=== PATIENT | male | born 1985 | race Caucasian/White ===

== ENCOUNTER 2018-03-19 05:10 | Emergency (ER) | payer BC ==
[2018-03-19] MEDS ORDERED: NA CHLORIDE 0.9% 1,000 ML ONE (05:34)
[2018-03-19 05:59] LABS: BUN Blood Urea Nitrogen 14 mg/dL (7-18); Bicarbonate 26 mmol/L (21-32); Creatine Phosphokinase 112 U/L (39-308); Glucose Level 165 mg/dL (74-106); Potassium 3.3 mmol/L (3.5-5.1); Sodium Level 143 mmol/L (136-145); Troponin (Emerg Dept Use Only) < 0.02 ng/mL (0.0-0.045)
--- NOTE | 2018-03-19 06:46 | EDPHYS ---
Physician Documentation [facility] Name: Diogo Mejia Age: 32 yrs Sex: Male : 1985 Arrival Date: 03/19/2018 Time: 05:13 Bed 16 Private MD: ED Physician Karl Rose HPI: 03/19 05:25 This 32 yrs old Male presents to ER via EMS with complaints of weakness, rn chills, . 05:25 REports called 911 for allergic reaction, but states only because that is what other rn doctors have told him this is. Reports since 2003 having several episodes, sometimes weekly that he describes as sudden generalized weakness/fatigue/chills/shakes/rash that last as long as an hour, goes away on their own, been seen multiple times in past and no clear diagnosis. Reports told to take benadryl in past but doesn't believe is true allergic reaction. Began happening again tonight, reports this is "a light episode", has only had the weakness and shakes. NO seizure. Denies drug or ETOH use. No trauma. Reports is very thirsty. . Onset: The symptoms/episode began/occurred just prior to arrival. Severity of symptoms: At their worst the symptoms were mild in the emergency department the symptoms are unchanged. The patient has experienced similar episodes in the past. The patient has not recently seen a physician. Historical: - Allergies: 05:19 NKA; ak1 - Home Meds: 05:19 None [Active]; ak1 - PMHx: 05:19 None; ak1 - PSHx: 05:19 shoulder sx; wrist; ak1 - Immunization history:: Adult Immunizations unknown. - Social history:: Smoking status: unknown. - Ebola Screening: : No symptoms or risks identified at this time. - Family history:: not pertinent. - Hospitalizations: : No recent hospitalization is reported. ROS: 05:25 Constitutional: Negative for fever, weight loss, Eyes: Negative for injury, pain, rn redness, and discharge, ENT: Negative for injury, pain, and discharge, Neck: Negative for injury, pain, and swelling, Cardiovascular: Negative for chest pain, palpitations, and edema, Respiratory: Negative for shortness of breath, cough, wheezing, and pleuritic chest pain, Abdomen/GI: Negative for abdominal pain, nausea, vomiting, and constipation, : Negative for injury, bleeding, discharge, and swelling, MS/Extremity: Negative for injury and deformity, Skin: Negative for injury, rash, and discoloration, Neuro: Negative for headache, numbness, tingling, and seizure. Exam: 05:25 Constitutional: This is a well developed, well nourished patient who is awake, alert, rn appears anxious, is frustrated that multiple people asking questions. Head/Face: Normocephalic, atraumatic. Eyes: Pupils equal round and reactive to light, extra-ocular motions intact. Lids and lashes normal. Conjunctiva and sclera are non-icteric and not injected. Cornea within normal limits. Periorbital areas with no swelling, redness, or edema. ENT: dry MM, no stridor, no oral lacerations or trauma Cardiovascular: Regular rate and rhythm with a normal S1 and S2. No gallops, murmurs, or rubs. No pulse deficits Respiratory: Lungs have equal breath sounds bilaterally, clear to auscultation. No increased work of breathing, no retractions or nasal flaring. Abdomen/GI: soft, non-tender Skin: Warm, dry, no evidence of cellulitis. MS/ Extremity: Pulses equal, no cyanosis. Neurovascular intact. Full, normal range of motion. Equal circumference. Neuro: Awake and alert, GCS 15, oriented to person, place, time, and situation. Cranial nerves II-XII grossly intact. Motor strength 4/5 in all extremities. Sensory grossly intact. Cerebellar exam normal. Vital Signs: 05:19 BP 141 / 79; Pulse 58; Resp 18; Temp 98.1(O); Pulse Ox 96% on R/A; Weight 95.25 kg (R); ak1 Height 5 ft. 7 in. (170.18 cm) (R); Pain 0/10; 06:00 BP 124 / 82; Pulse 77; Resp 18; Pulse Ox 96% on R/A; jb4 07:00 BP 131 / 73; Pulse 86; Resp 18; Pulse Ox 100% on R/A; jb4 05:19 Body Mass Index 32.89 (95.25 kg, 170.18 cm) ak1 MDM: 05:19 Patient medically screened. rn 06:41 Differential Diagnosis flu, dehydration, metabolic disorder, autoimmune disorder, rn rheumatologic disorder. Data reviewed: vital signs, nurses notes, lab test result(s), EKG, and as a result, I will discharge patient. Counseling: I had a detailed discussion with the patient and/or guardian regarding: the historical points, exam findings, and any diagnostic results supporting the discharge/admit diagnosis, lab results, the need for outpatient follow up, to return to the emergency department if symptoms worsen or persist or if there are any questions or concerns that arise at home. Response to treatment: the patient's symptoms have markedly improved after treatment, and as a result, I will discharge patient. Special discussion: I discussed with the patient/guardian in detail that at this point there is no indication for admission to the hospital. It is understood, however, that if the symptoms persist or worsen the patient needs to return immediately for re-evaluation. Based on the history and exam findings, there is no indication for further emergent testing or inpatient evaluation. I discussed with the patient/guardian the need to see the primary care provider for further evaluation of the symptoms. ED course: Pt reports multiple negative w/u such as that done today, has had multiple CT scans, MRIs, bloodwork at [place] and other doctors without diagnosis, reports usually just goes away on its own, no acute findings today, will dc home with instructions for hydration/daily multivitamin, and recommend pcp f/u. No seizure activity, normal ecg, mother here to take him home, she confirms that this has been going on for years without diagnosis or treatment, wants to take him home and understands limitation of ER evaluations and further need for f/u. . 03/19 05:23 Order name: BMP; Complete Time: : rn 03/19 05:23 Order name: Troponin (emerg Dept Use Only); Complete Time: : rn 03/19 05:23 Order name: CK; Complete Time: : rn 03/19 05:23 Order name: ETOH Level; Complete Time: : rn 03/19 05:23 Order name: Magnesium; Complete Time: 06: rn 03/19 05:20 Order name: IV Start; Complete Time: 05:35 rn 03/19 05:23 Order name: EKG; Complete Time: 05:24 rn 03/19 05:23 Order name: EKG - Nurse/Tech; Complete Time: 06:17 rn 10/21 05:24 Order name: Flu rn Administered Medications: 06:17 Drug: NS 0.9% 1000 ml Route: IV; Rate: 1000 ml; Site: left antecubital; 4 07:00 Follow up: Response: No adverse reaction; IV Status: Completed infusion [facility] 06:57 CANCELLED (Other Intervention Used): Potassium Chloride 10 mEq IV at calculated rate bb once; administer over 1-2 hours 07:00 Drug: Potassium Chloride 40 mEq Route: PO; jb4 07:00 Follow up: Response: No adverse reaction jb4 Disposition: 03/19/18 06:45 Discharged to Home. Impression: Chills (without fever), Weakness, Hypokalemia. - Condition is Stable. - Discharge Instructions: Potassium Content of Foods, Weakness, Fatigue, Hypokalemia. - Medication Reconciliation Form, Thank You Letter, Antibiotic Education, Prescription Opioid Use form. - Follow up: Private Physician; When: As needed; Reason: Recheck today's complaints, Re-evaluation by your physician. - Problem is new. - Symptoms have improved. Signatures: Dispatcher [employer] EDMS Karl Rose MD MD rn Krenek, Amber RN RN ak1 Antwon Braun RN RN jb4 Kristal Huitron RN bb Corrections: (The following items were deleted from the chart) 06:57 06:29 Potassium Chloride 10 mEq IV at calculated rate once; administer over 1-2 hours bb ordered. rn 07:13 06:45 03/19/2018 06:45 Discharged to Home. Impression: Chills (without fever); jb4 Weakness; Hypokalemia. Condition is Stable. Forms are Medication Reconciliation Form, Thank You Letter, Antibiotic Education, Prescription Opioid Use. Follow up: Private Physician; When: As needed; Reason: Recheck today's complaints, Re-evaluation by your physician. Problem is new. Symptoms have improved. rn
--- NOTE | 2018-03-19 06:46 | ER ---
Nurse's Notes [facility] Name: Diogo Mejia Age: 32 yrs Sex: Male : 1985 Arrival Date: 03/19/2018 Time: 05:13 Bed 16 Private MD: Diagnosis: Chills (without fever);Weakness;Hypokalemia Presentation: 03/19 05:14 Presenting complaint: EMS states: toned out for allergic reaction. ETOH positive but ak1 denies. pt c/o weakness, diarrhea, slurred words, chills and hives during his "episodes" pt stated these allergic reaction [place]. Transition of care: patient was not received from another setting of care. Onset of symptoms is unknown. Risk Assessment: Do you want to hurt yourself or someone else? Patient reports no desire to harm self or others. Initial Sepsis Screen: Does the patient meet any 2 criteria? No. Patient's initial sepsis screen is negative. Does the patient have a suspected source of infection? No. Patient's initial sepsis screen is negative. Care prior to arrival: None. 05:14 Method Of Arrival: EMS: [facility] ak1 05:14 Acuity: ABHINAV 3 ak1 05:24 Note EMS FSGB 154. ak1 Triage Assessment: 05:19 General: Appears in no apparent distress. ak1 Historical: - Allergies: 05:19 NKA; ak1 - Home Meds: 05:19 None [Active]; ak1 - PMHx: 05:19 None; ak1 - PSHx: 05:19 shoulder sx; wrist; ak1 - Immunization history:: Adult Immunizations unknown. - Social history:: Smoking status: unknown. - Ebola Screening: : No symptoms or risks identified at this time. - Family history:: not pertinent. - Hospitalizations: : No recent hospitalization is reported. Screenin:15 Abuse screen: Denies threats or abuse. Nutritional screening: No deficits noted. jb4 Tuberculosis screening: No symptoms or risk factors identified. Fall Risk None identified. Assessment: 05:15 General: Appears in no apparent distress. uncomfortable, Behavior is calm, cooperative, jb4 appropriate for age. Pain: Denies pain. Neuro: Level of Consciousness is awake, alert, obeys commands, Oriented to person, place, time, situation. Cardiovascular: Heart tones S1 S2 Patient's skin is warm and dry. Respiratory: Airway is patent Respiratory effort is even, unlabored, Respiratory pattern is regular, symmetrical, Breath sounds are clear bilaterally. GI: Abdomen is round non-distended, Bowel sounds present X 4 quads. Abd is soft and non tender X 4 quads. : No signs and/or symptoms were reported regarding the genitourinary system. EENT: Sclera/Cornea are reddened in inner aspect of conjuctiva of right eye and inner aspect of conjunctiva of left eye. Derm: Skin is intact, Skin is pink, warm \\T\\ dry. Musculoskeletal: Circulation, motion, and sensation intact. 06:10 Reassessment: Patient appears in no apparent distress at this time. Patient and/or jb4 family updated on plan of care and expected duration. Pain level reassessed. Patient is alert, oriented x 3, equal unlabored respirations, skin warm/dry/pink. 07:10 Reassessment: Patient appears in no apparent distress at this time. Patient and/or jb4 family updated on plan of care and expected duration. Pain level reassessed. Patient is alert, oriented x 3, equal unlabored respirations, skin warm/dry/pink. Vital Signs: 05:19 BP 141 / 79; Pulse 58; Resp 18; Temp 98.1(O); Pulse Ox 96% on R/A; Weight 95.25 kg (R); ak1 Height 5 ft. 7 in. (170.18 cm) (R); Pain 0/10; 06:00 BP 124 / 82; Pulse 77; Resp 18; Pulse Ox 96% on R/A; jb4 07:00 BP 131 / 73; Pulse 86; Resp 18; Pulse Ox 100% on R/A; jb4 05:19 Body Mass Index 32.89 (95.25 kg, 170.18 cm) ak1 ED Course: 05:13 Patient arrived in ED. ak1 05:14 Antwon Braun, EUGENE is Primary Nurse. jb4 05:15 Patient has correct armband on for positive identification. Call light in reach. Side jb4 rails up X 1. Pulse ox on. NIBP on. 05:15 Inserted saline lock: 20 gauge in left antecubital area, using aseptic technique. Blood bb collected. 05:17 Triage completed. ak1 05:19 Karl Rose MD is Attending Physician. rn 05:19 Arm band placed on Patient placed in an exam room, on a stretcher, on pulse oximetry, ak1 Patient notified of wait time. 07:00 No provider procedures requiring assistance completed. IV discontinued, intact, jb4 bleeding controlled. Administered Medications: 06:17 Drug: NS 0.9% 1000 ml Route: IV; Rate: 1000 ml; Site: left antecubital; jb4 07:00 Follow up: Response: No adverse reaction; IV Status: Completed infusion jb4 06:57 CANCELLED (Other Intervention Used): Potassium Chloride 10 mEq IV at calculated rate bb once; administer over 1-2 hours 07:00 Drug: Potassium Chloride 40 mEq Route: PO; jb4 07:00 Follow up: Response: No adverse reaction jb4 Outcome: 06:45 Discharge ordered by . rn 07:00 Discharged to home ambulatory. jb4 07:00 Condition: stable 07:00 Discharge instructions given to patient, Instructed on discharge instructions, follow up and referral plans. medication usage, Demonstrated understanding of instructions, follow-up care, medications. 07:13 Patient left the ED. jb4 Signatures: Kristal Huitron, RN RN bb Karl Rose MD MD rn Krenek, Amber, RN RN ak1 Antwon Braun RN RN jb4
[2018-03-19] MEDS ORDERED: POTASSIUM CL SA 10 MEQ TAB PO ONE (07:04)
[2018-03-19 07:18] VITALS: TEMP 98.1
[2018-03-19 07:20] VITALS: BP 131/73; O2SAT 100
--- NOTE | 2018-03-20 09:05 | EKG ---
Test Date: 2018-03-19 Test Time: 06:11:18 Security Expert: ELVIA MEASUREMENT RESULTS: Intervals: Rate: 72 VT: 148 QRSD: 90 QT: 388 QTc: 424 [place]: P: 7 VT: 148 QRS: 79 T: 51 INTERPRETIVE STATEMENTS: Normal sinus rhythm with sinus arrhythmia Normal ECG Compared to ECG 01/14/2015 20:55:15 No significant changes Electronically Signed On 03-20-18 09:04:34 CDT by Lee Arreguin
== END 2018-03-19 07:13 | disposition home or self-care (01) ==
LOC: ER 05:10
DX: E87.6 Hypokalemia (principal); R68.83 Chills (without fever)
CPT/HCPCS: 36415; 80048; 80320; 82550; 83735; 84484; 87804; 93005; 96360; 99284; J7030

== ENCOUNTER 2018-05-20 22:04 | Observation (INO) | payer BC ==
[2018-05-20 23:27] LABS: Arterial Blood Carboxyhemoglob 1.1 % (0-1.5); Blood Gas Oxyhemoglobin 96.8 % (94-97); Blood O2 Saturation 98.9 % (92-98.5)
[2018-05-20] MEDS ORDERED: NA CHLORIDE 0.9% 1,000 ML ONE (23:31)
--- NOTE | 2018-05-21 00:24 | ER ---
Nurse's Notes [facility] Name: Diogo Mejia Age: 32 yrs Sex: Male : 1985 Arrival Date: 05/20/2018 Time: 22:37 Bed 18 Private MD: Diagnosis: Dyspnea;Hypoxemia;Abdominal tenderness;Diarrhea, unspecified;Elevated white blood cell count;Pneumonia due to other specified bacteria Presentation: 05/20 22:15 Presenting complaint: EMS states: unable to control his bowel movement started since rr5 2005 after he went back from [place] as claimed. associated with reddened eyes, flushed skin and body weakness. Transition of care: patient was not received from another setting of care. Onset of symptoms was 2005. Risk Assessment: Do you want to hurt yourself or someone else? Patient reports no desire to harm self or others. Initial Sepsis Screen: Does the patient meet any 2 criteria? No. Patient's initial sepsis screen is negative. Does the patient have a suspected source of infection? No. Patient's initial sepsis screen is negative. Care prior to arrival: None. 22:15 Method Of Arrival: EMS rr5 22:15 Acuity: ABHINAV 3 rr5 22:15 Method Of Arrival: EMS: [facility] rr5 22:15 Note came GCS 15/15 AO x4 full of stool all over the upper and lower extremities. rr5 Triage Assessment: 22:15 General: Appears in no apparent distress. uncomfortable, unkempt, Behavior is calm, rr5 cooperative, appropriate for age. Pain: Denies pain. 22:15 EENT: Eyes reddened eyes. Neuro: Level of Consciousness is awake, alert, obeys rr5 commands, Oriented to person, place, time, situation, Appropriate for age. Cardiovascular: Capillary refill < 3 seconds Patient's skin is warm and dry. Respiratory: Airway is patent Respiratory effort is even, unlabored, Respiratory pattern is regular, symmetrical. GI: Reports incontinence. 22:15 : No signs and/or symptoms were reported regarding the genitourinary system. Derm: No rr5 signs and/or symptoms reported regarding the dermatologic system. Musculoskeletal: Reports weakness all over the body. Historical: - Allergies: 22:15 NKA; rr5 - PMHx: 22:15 None; rr5 - PSHx: 22:15 wrist surgery; shoulder surgery; rr5 - Immunization history:: Adult Immunizations not up to date, Flu vaccine is not up to date. - Social history:: Smoking status: Patient/guardian denies using tobacco, Patient/guardian denies using alcohol, street drugs. - Ebola Screening: : Patient negative for fever greater than or equal to 101.5 degrees Fahrenheit, and additional compatible Ebola Virus Disease symptoms Patient denies exposure to infectious person Patient denies travel to an Ebola-affected area in the 21 days before illness onset. - Family history:: not pertinent. Screenin:50 Abuse screen: Denies threats or abuse. Denies injuries from another. Nutritional rr5 screening: No deficits noted. Tuberculosis screening: No symptoms or risk factors identified. Fall Risk IV access (20 points). Gait- Weak (10 pts.). Total Ruelas Fall Scale indicates Low Risk Score (25-44 pts). Fall prevention measures have been instituted. Side Rails Up X 2 Frequent Obs/Assesments occuring Family Present and informed to notify staff if they need to leave bedside As available Patient and Family Educated on Fall Prevention Program and strategies. Assessment: 22:20 General: Appears in no apparent distress. uncomfortable, unkempt, Behavior is calm, rr5 cooperative, appropriate for age. 22:20 Pain: Denies pain. Neuro: Level of Consciousness is awake, alert, obeys commands, rr5 Oriented to person, place, time, situation, Appropriate for age Reports weakness. Cardiovascular: Capillary refill < 3 seconds Patient's skin is warm and dry. Respiratory: Airway is patent Respiratory effort is even, unlabored, Respiratory pattern is regular, symmetrical. GI: Abdomen is round. : No signs and/or symptoms were reported regarding the genitourinary system. EENT: Eyes reddened. Derm: pale on face. Musculoskeletal: Capillary refill < 3 seconds, Range of motion: intact in all extremities, Reports weakness in all over the body. 22:20 GI: Reports diarrhea. rr5 23:30 Reassessment: Patient appears in no apparent distress at this time. no complaints made. rr5 asleep comfortably Patient states feeling better. Patient states symptoms have improved. 05/21 00:20 Reassessment: Patient appears in no apparent distress at this time. Patient and/or rr5 family updated on plan of care and expected duration. Pain level reassessed. Patient is alert, oriented x 3, equal unlabored respirations, skin warm/dry/pink. Patient states feeling better. Patient states symptoms have improved. 01:30 Reassessment: Patient appears in no apparent distress at this time. awaiting for CT rr5 scan report, patient is for admission. Patient states feeling better. Patient states symptoms have improved. 02:30 Reassessment: Patient appears in no apparent distress at this time. Patient and/or rr5 family updated on plan of care and expected duration. Pain level reassessed. Patient states feeling better. Patient states symptoms have improved. 03:20 Reassessment: Patient appears in no apparent distress at this time. dr. cormier spoke rr5 to patient and agreed to stay for admission. Vital Signs: 05/20 22:15 BP 114 / 72; Pulse 88; Resp 17; Temp 99.6; Pulse Ox 98% on R/A; Weight 90.72 kg; Height rr5 5 ft. 7 in. (170.18 cm); 23:00 BP 121 / 70; Pulse 82; Resp 19; Pulse Ox 99% on 3 lpm NC; rr5 05/21 00:00 BP 125 / 81; Pulse 81; Resp 17; Pulse Ox 98% on 3 lpm NC; rr5 00:44 BP 119 / 70; Pulse 79; Resp 17; Pulse Ox 98% on 3 lpm NC; rr5 02:00 BP 121 / 70; Pulse 75; Resp 19; Pulse Ox 99% on 3 lpm NC; rr5 03:25 BP 132 / 70; Pulse 70; Resp 18; Temp 98; Pulse Ox 99% on R/A; Pain 0/10; rr5 05/20 22:15 Body Mass Index 31.32 (90.72 kg, 170.18 cm) rr5 ED Course: 05/20 22:20 take a bath. rr5 22:20 Assisted to bathroom. rr5 22:30 Arm band placed on. rr5 22:37 Patient arrived in ED. fc 22:40 Patient has correct armband on for positive identification. Bed in low position. Call rr5 light in reach. Side rails up X2. monitoring engineer on. Pulse ox on. NIBP on. 22:44 Luke Navarro, EUGENE is Primary Nurse. rr5 22:50 Triage completed. rr5 22:58 Eladio Cormier MD is Attending Physician. [facility] 23:00 Oxygen administration via nasal cannula \T\ 3L/min Response to oxygen therapy: symptoms rr5 improved. 23:32 X-ray completed. Portable x-ray completed in exam room. Patient tolerated procedure sg4 well. 23:40 XRAY Chest (1 view) In Process Unspecified. EDDC 05/21 00:00 Inserted saline lock: 20 gauge in right antecubital area, using aseptic technique. rr5 Blood collected. 00:16 Radiology exam delayed due to lab results not completed at this time. (BUN/Creatinine). kc3 00:20 Israel Dozier MD is Hospitalizing Provider. [facility] 00:[address] via stretcher. rr5 01:26 CT Aorta for Dissection In Process Unspecified. EDMS 02:13 No provider procedures requiring assistance completed. Patient admitted, IV remains in rr5 place. intact. Administered Medications: 00:28 Drug: NS 0.9% 1000 ml Route: IV; Rate: 1 bolus; Site: right antecubital; cc3 02:00 Follow up: Response: No adverse reaction; IV Status: Completed infusion; IV Intake: rr5 1000ml 00:50 Drug: levofloxacin 750 mg Volume: 150 ml; Route: IVPB; Infused Over: 90 mins; Site: rr5 right antecubital; 02:40 Follow up: Response: No adverse reaction; IV Status: Completed infusion; IV Intake: rr5 150ml 03:32 Drug: Lovenox 1 mg/kg Route: Sub-Q; Site: right lower abdomen; rr5 03:47 Follow up: Response: No adverse reaction rr5 Intake: 02:00 IV: 1000ml; Total: 1000ml. rr5 02:40 IV: 150ml; Total: 1150ml. rr5 Output: 01:30 Urine: 400ml (Voided); Total: 400ml. rr5 Outcome: 00:23 Decision to Hospitalize by Provider. [facility] 03:35 Admitted to Med/surg accompanied by tech, via wheelchair, with chart, Report called to rr5 [place] 03:35 Condition: stable 03:35 Instructed on the need for admit. 04:12 Patient left the ED. rr5 Signatures: Dispatcher [employer] EDDC Eladio Cormier MD MD cha Chretien, Felicia, RN RN Michaela Meza3 Katlyn Mcmillan cc3 Vaishali Mccrary sg4 Luke Navarro, EUGENE RN rr5 Corrections: (The following items were deleted from the chart) 05/20 23:04 22:15 BP 114 / 72; Pulse 88bpm; Resp 17bpm; Pulse Ox 98% RA; Temp 97.6F; 90.72 kg; rr5 Height 5 ft. 7 in.; BMI: 31.3; rr5 23:05 22:15 EENT: No signs and/or symptoms were reported regarding the EENT system. rr5 rr5
--- NOTE | 2018-05-21 00:24 | EDPHYS ---
Physician Documentation [facility] Name: Diogo Mejia Age: 32 yrs Sex: Male : 1985 Arrival Date: 05/20/2018 Time: 22:37 Bed 18 Private MD: ED Physician Eladio Cormier HPI: 05/20 23:09 This 32 yrs old Male presents to ER via EMS with complaints of bowel kayla incontinence. 23:09 The patient has shortness of breath at rest, with light activity. Onset: The kayla symptoms/episode began/occurred 5 day(s) ago. Duration: The symptoms are continuous, and are steadily getting worse. The patient's shortness of breath has no apparent modifying factors, is aggravated by nothing, is alleviated by nothing. The patient presents with abdominal pain in the epigastric area, in the upper abdomen. Onset: The symptoms/episode began/occurred 5 year(s) ago. The symptoms do not radiate. Associated signs and symptoms: The patient has no apparent associated signs or symptoms. Associated signs and symptoms: Pertinent positives: nausea and vomiting, shortness of breath. Historical: - Allergies: 22:15 NKA; rr5 - PMHx: 22:15 None; rr5 - PSHx: 22:15 wrist surgery; shoulder surgery; rr5 - Immunization history:: Adult Immunizations not up to date, Flu vaccine is not up to date. - Social history:: Smoking status: Patient/guardian denies using tobacco, Patient/guardian denies using alcohol, street drugs. - Ebola Screening: : Patient negative for fever greater than or equal to 101.5 degrees Fahrenheit, and additional compatible Ebola Virus Disease symptoms Patient denies exposure to infectious person Patient denies travel to an Ebola-affected area in the 21 days before illness onset. - Family history:: not pertinent. ROS: 23:09 Constitutional: Negative for fever, chills, and weight loss, Eyes: Negative for injury, kayla pain, redness, and discharge, ENT: Negative for injury, pain, and discharge, Neck: Negative for injury, pain, and swelling, Cardiovascular: Negative for chest pain, palpitations, and edema, Back: Negative for injury and pain, : Negative for injury, bleeding, discharge, and swelling, MS/Extremity: Negative for injury and deformity, Skin: Negative for injury, rash, and discoloration, Neuro: Negative for headache, weakness, numbness, tingling, and seizure. 23:09 Constitutional: Positive for body aches, chills, fatigue, malaise, poor PO intake. 23:09 Cardiovascular: Negative for chest pain. 23:09 Respiratory: Positive for cough, shortness of breath. 23:09 Abdomen/GI: Positive for diarrhea. 23:09 MS/extremity: Negative for acute changes. Exam: 23:12 Constitutional: This is a well developed, well nourished patient who is awake, alert, kayla and in no acute distress. Head/Face: Normocephalic, atraumatic. Eyes: Pupils equal round and reactive to light, extra-ocular motions intact. Lids and lashes normal. Conjunctiva and sclera are non-icteric and not injected. Cornea within normal limits. Periorbital areas with no swelling, redness, or edema. ENT: Nares patent. No nasal discharge, no septal abnormalities noted. Tympanic membranes are normal and external auditory canals are clear. Oropharynx with no redness, swelling, or masses, exudates, or evidence of obstruction, uvula midline. Mucous membranes moist. Neck: Trachea midline, no thyromegaly or masses palpated, and no cervical lymphadenopathy. Supple, full range of motion without nuchal rigidity, or vertebral point tenderness. No Meningismus. Chest/axilla: Normal chest wall appearance and motion. Nontender with no deformity. No lesions are appreciated. Cardiovascular: Regular rate and rhythm with a normal S1 and S2. No gallops, murmurs, or rubs. Normal PMI, no JVD. No pulse deficits. Respiratory: Lungs have equal breath sounds bilaterally, clear to auscultation and percussion. No rales, rhonchi or wheezes noted. No increased work of breathing, no retractions or nasal flaring. Abdomen/GI: Soft, non-tender, with normal bowel sounds. No distension or tympany. No guarding or rebound. No evidence of tenderness throughout. Back: No spinal tenderness. No costovertebral tenderness. Full range of motion. Male : Normal genitalia with no discharge or lesions. MS/ Extremity: Pulses equal, no cyanosis. Neurovascular intact. Full, normal range of motion. Neuro: Awake and alert, GCS 15, oriented to person, place, time, and situation. Cranial nerves II-XII grossly intact. Motor strength 5/5 in all extremities. Sensory grossly intact. Cerebellar exam normal. Normal gait. Psych: Awake, alert, with orientation to person, place and time. Behavior, mood, and affect are within normal limits. 23:12 Musculoskeletal/extremity: DVT Exam: No signs of deep vein thrombosis. no pain, no swelling, no tenderness, negative Homans' sign noted on exam, no appreciated bluish discoloration, no erythema, no increased warmth. 23:12 Skin: Appearance: cyanosis. Vital Signs: 22:15 BP 114 / 72; Pulse 88; Resp 17; Temp 99.6; Pulse Ox 98% on R/A; Weight 90.72 kg; Height rr5 5 ft. 7 in. (170.18 cm); 23:00 BP 121 / 70; Pulse 82; Resp 19; Pulse Ox 99% on 3 lpm NC; rr5 05/21 00:00 BP 125 / 81; Pulse 81; Resp 17; Pulse Ox 98% on 3 lpm NC; rr5 00:44 BP 119 / 70; Pulse 79; Resp 17; Pulse Ox 98% on 3 lpm NC; rr5 02:00 BP 121 / 70; Pulse 75; Resp 19; Pulse Ox 99% on 3 lpm NC; rr5 03:25 BP 132 / 70; Pulse 70; Resp 18; Temp 98; Pulse Ox 99% on R/A; Pain 0/10; rr5 05/20 22:15 Body Mass Index 31.32 (90.72 kg, 170.18 cm) rr5 MDM: 05/20 22:58 Patient medically screened. [facility] 23:13 Data reviewed: vital signs, nurses notes, lab test result(s), EKG, radiologic studies, [facility] CT scan, plain films. 05/20 23:08 Order name: Basic Metabolic Panel; Complete Time: : [facility] 05/20 23:08 Order name: CBC with Diff; Complete Time: [facility] 05/20 23:08 Order name: LFT's; Complete Time: : [facility] 05/20 23:08 Order name: Magnesium; Complete Time: : [facility] 05/20 23:08 Order name: NT PRO-BNP; Complete Time: : [facility] 05/20 23:08 Order name: PT-INR; Complete Time: : [facility] 05/20 23:08 Order name: Troponin (emerg Dept Use Only); Complete Time: 01: [facility] 05/20 23:08 Order name: Lipase; Complete Time: 01: [facility] 05/20 23:08 Order name: ABG; Complete Time: 00:17 [facility] 05/20 23:08 Order name: Urine Culture [facility] 05/20 23:08 Order name: Blood Culture Adult (2) [facility] 05/20 23:08 Order name: Lactate; Complete Time: 01: [facility] 05/20 23:08 Order name: Procalcitonin; Complete Time: : [facility] 05/21 00:40 Order name: Influenza Screen (a \T\ B); Complete Time: 02:18 [facility] 05/20 23:08 Order name: XRAY Chest (1 view) [facility] 05/20 23:08 Order name: EKG; Complete Time: 23:09 [facility] 05/20 23:08 Order name: CT Aorta for Dissection [facility] 05/21 00:53 Order name: Manual Differential; Complete Time: 01:26 [facility] 05/21 01:03 Order name: CONS Pharmacy Consult [facility] 05/21 01:06 Order name: Urine 5HIAA (Serotonin) [facility] 05/21 01:07 Order name: Clostridium difficile DNA [facility] 05/21 01:07 Order name: Fecal Leukocyte Stain [facility] 05/21 01:07 Order name: Ova and Parasites [facility] 05/21 01:07 Order name: Stool Culture [facility] 05/21 01:51 Order name: Urine Dipstick--Ancillary (enter results) 05/21 02:07 Order name: Urine Dipstick-Ancillary; Complete Time: 02:18 [facility] 05/21 03:41 Order name: Lactate Sepsis 2 HR Follow-up [facility] 05/20 23:08 Order name: Cardiac monitoring; Complete Time: 00:32 [facility] 05/20 23:08 Order name: EKG - Nurse/Tech; Complete Time: 00:32 [facility] 05/20 23:08 Order name: IV Saline Lock; Complete Time: 00:32 [facility] 05/20 23:08 Order name: Labs collected and sent; Complete Time: 00:32 [facility] 05/20 23:08 Order name: O2 Per Protocol; Complete Time: 00:32 [facility] 05/20 23:08 Order name: O2 Sat Monitoring; Complete Time: 00:32 [facility] 05/20 23:08 Order name: Urine Dipstick-Ancillary (obtain specimen); Complete Time: 02:10 [facility] 05/21 01:03 Order name: Full Liquid EDMS Administered Medications: 05/21 00:28 Drug: NS 0.9% 1000 ml Route: IV; Rate: 1 bolus; Site: right antecubital; cc3 02:00 Follow up: Response: No adverse reaction; IV Status: Completed infusion; IV Intake: rr5 1000ml 00:50 Drug: levofloxacin 750 mg Volume: 150 ml; Route: IVPB; Infused Over: 90 mins; Site: rr5 right antecubital; 02:40 Follow up: Response: No adverse reaction; IV Status: Completed infusion; IV Intake: rr5 150ml 03:32 Drug: Lovenox 1 mg/kg Route: Sub-Q; Site: right lower abdomen; rr5 03:47 Follow up: Response: No adverse reaction rr5 Disposition: 05/21/18 00:23 Hospitalization ordered by Israel Dozier for Inpatient Admission. Preliminary diagnosis are Dyspnea, Hypoxemia, Abdominal tenderness, Diarrhea, unspecified, Elevated white blood cell count, Pneumonia due to other specified bacteria. - Bed requested for Telemetry/MedSurg (Inpatient). - Status is Inpatient Admission. rr5 - Condition is Fair. - Problem is new. - Symptoms have improved. UTI on Admission? No Signatures: Dispatcher [employer] EDMS Eladio Cormier MD MD cha Garcia, Cindy, EUGENE RN Katlyn Mcmillan cc3 Luke Navarro RN RN rr5 Corrections: (The following items were deleted from the chart) 00:23 Hospitalization Ordered by Israel Dozier MD for Inpatient Admission. Preliminary cg diagnosis is Dyspnea; Hypoxemia; Abdominal tenderness; Diarrhea, unspecified. Bed requested for Telemetry/MedSurg (Inpatient). Status is Inpatient Admission. Condition is Fair. Problem is new. Symptoms have improved. UTI on Admission? No. kayla 01:32 01:27 05/21/2018 00:23 Hospitalization Ordered by Israel Dozier MD for Inpatient [facility] Admission. Preliminary diagnosis is Dyspnea; Hypoxemia; Abdominal tenderness; Diarrhea, unspecified. Bed requested for Telemetry/MedSurg (Inpatient). Status is Inpatient Admission. Condition is Fair. Problem is new. Symptoms have improved. UTI on Admission? No. cg 04:12 01:32 05/21/2018 00:23 Hospitalization Ordered by Israel Dozier MD for Inpatient rr5 Admission. Preliminary diagnosis is Dyspnea; Hypoxemia; Abdominal tenderness; Diarrhea, unspecified; Elevated white blood cell count; Pneumonia due to other specified bacteria. Bed requested for Telemetry/MedSurg (Inpatient). Status is Inpatient Admission. Condition is Fair. Problem is new. Symptoms have improved. UTI on Admission? No. kayla
[2018-05-21 00:26] LABS: Absolute Lymphocytes (CBC) 1.8 K/uL (0.7-4.9); Absolute Monocytes 1.9 K/uL (0.1-1.3); Absolute Neutrophil 20.6 K/uL (1.8-8.0); Basophils % 0.1 % (0-1.3); Eosinophils % 0.2 % (0-4.4); Hematocrit 44.4 % (39.6-49.0); Lymphocytes % 7.5 % (15.3-44.8); MPV 9.3 fL (7.6-11.3); Monocytes % 7.6 % (3.3-12.3); RBC Red Blood Cell Count 5.13 M/uL (4.33-5.43)
[2018-05-21 00:36] LABS: Protime INR 1.12
[2018-05-21] MEDS ORDERED: Levofloxacin 750mg IV 750 MG/150 ML BAG IV ONE (00:39)
[2018-05-21 00:53] LABS: Albumin 3.7 g/dL (3.4-5.0); Bilirubin Direct 0.2 mg/dL (0-0.2); Bilirubin Total 0.5 mg/dL (0.2-1.0); Blood Morphology Comment NOT SEEN (NOT SEEN); Magnesium 2.1 mg/dL (1.8-2.4); Platelet Estimate ADEQ; Potassium 3.9 mmol/L (3.5-5.1); Protein, Total 7.3 g/dL (6.4-8.2); Troponin (Emerg Dept Use Only) 0.04 ng/mL (0.0-0.045)
[2018-05-21] MEDS ORDERED: ONDANSETRON 4 MG/2 ML VIAL IV PRN (01:01)
[2018-05-21] MEDS ORDERED: MORPHINE 2 MG/ML SYR IV PRN (01:01)
[2018-05-21] MEDS ORDERED: ACETAMINOPHEN 500 MG TAB PO PRN (01:01)
[2018-05-21 02:07] LABS: Urine Blood NEGATIVE (NEG); Urine Glucose NEGATIVE (NEG); Urine Protein 1+ (NEG)
[2018-05-21] MEDS ORDERED: ENOXAPARIN 100 MG/ML SYR SQ ONE (02:34)
[2018-05-21 04:09] VITALS: BMI 32.4
[2018-05-21] MEDS: METRONIDAZOLE 500mg IVPB 500 MG/100 ML BAG IV SCH ×4 (04:37→17:26)
[2018-05-21] MEDS: NA CHLORIDE 0.9% 1,000 ML IV SCH ×2 (04:37→15:20)
--- NOTE | 2018-05-21 08:18 | P.HP ---
Certification for Inpatient Patient admitted to: Observation With expected LOS: <2 Midnights Patient will require the following post-hospital care: None Practitioner: I am a practitioner with admitting privileges, knowledge of patient current condition, hospital course, and medical plan of care. Services: Services provided to patient in accordance with Admission requirements found in Title 42 Section 412.3 of the Code of Federal Regulations Patient History Date of Service: 05/21/18 Reason for admission: Bowel incontinence; full body rash; dyspnea History of Present Illness: Patient is a 32-year-old gentleman who states that he has been having problems with the symptoms for almost 10 years. He states he was in [place] when these problems started. This was around 2005. He states that he has diarrhea with associated feeling of being flushed with a full red rash throughout along with shortness of breath and shakes and chills. This slowed down over the a few years. However, he had the symptoms recur 3 months ago. He noticed that it is recurring again. He decided to come to the hospital to get it evaluated. Allergies No Known Drug Allergies Allergy (Verified 05/19/17 05:54) Unknown Home Medications: NK [No Home Meds] 05/21/18 - Past Medical/Surgical History Has patient received pneumonia vaccine in the past: No Diabetic: No -: diverticulitis -: wrist surg -: shoulder surg - Family History Father Family History: Reviewed- Non-Contributory - Social History Smoking Status: Former smoker CD- Drugs: No Place of Residence: Home Review of Systems 10-point ROS is otherwise unremarkable Physical Examination - Vital Signs Temperature: 97.8 F Blood Pressure: 124/69 Pulse: 72 Respirations: 18 Pulse Ox (%): 93 - Physical Exam General: Alert, In no apparent distress, Oriented x3 HEENT: Atraumatic, PERRLA, Mucous membr. moist/pink, EOMI, Sclerae nonicteric Neck: Supple, 2+ carotid pulse no bruit, No LAD, Without JVD or thyroid abnormality Respiratory: Clear to auscultation bilaterally, Normal air movement Cardiovascular: Regular rate/rhythm, Normal S1 S2, No murmurs Gastrointestinal: Normal bowel sounds, Soft and benign, Non-distended, No tenderness Musculoskeletal: No clubbing, No swelling, No tenderness Integumentary: No rashes Neurological: Normal gait, Normal speech, Normal strength at 5/5 x4 extr, Normal tone, Sensation intact, Cranial nerves 3-12 intact, Normal affect Lymphatics: No axilla or inguinal lymphadenopathy - Studies Laboratory Data (last 24 hrs) 05/20/18 23:50: PT 13.2 H, INR 1.12 05/20/18 23:50: WBC 24.4 H*, Hgb 15.7, Hct 44.4, Plt Count 230 05/20/18 23:50: Sodium 142, Potassium 3.9, BUN 14, Creatinine 1.40 H, Glucose 109 H, Magnesium 2.1, Total Bilirubin 0.5, AST 35, ALT 62, Alkaline Phosphatase 77, Lipase 137 Microbiology Data (last 24 hrs): 05/20/18 00:00 Blood - Blood Anaerobic Blood Culture - Final 05/21/18 00:43 Nasopharnyx Influenza Type A Antigen Screen - Final 05/21/18 00:43 Nasopharnyx Influenza Type B Antigen Screen - Final Assessment & Plan - Problems (Diagnosis) (1) Diarrhea Current Visit: Yes Status: Acute (2) Flushing Current Visit: Yes Status: Acute (3) Shortness of breath Current Visit: Yes Status: Acute (4) Chills (without fever) Current Visit: Yes Status: Acute (5) Leukocytosis Current Visit: Yes Status: Acute - Plan Plan: 1. IV antibiotics 2. Concern for symptoms associated with diarrhea and flushing suggest carcinoid or MEN(type I or II) syndrome. His symptoms have been going on for many years. Can check urine for metanephrines as well as byproducts of serotonin. Since the symptoms are chronic once lab for collected patient to follow with PCP. Patient does seem upset that no one has found the cause of the symptoms. Hopefully we can help him get to the bottom of it. Discharge Plan: Home Plan to discharge in: 24 Hours - Advance Directives Does patient have a Living Will: No Does patient have a Durable POA for Healthcare: No - Code Status/Comfort Care Code Status Assessed: Yes Code Status: Full Code Critical Care: No Time Spent Managing PTS Care (In Minutes): 45
--- NOTE | 2018-05-21 12:16 | RAD REPORT ---
EXAM DESCRIPTION: NM - Vent Perfusion VQ Scan - 05/21/2018 7:46 am CLINICAL HISTORY: ro pe Chest pain, shortness of breath COMPARISON: Chest Single View dated 05/20/2018 TECHNIQUE: 15.1mCi Xe-133 gas inhaled and 7.5mCi Tc-MAA IV. Planar ventilation scan was performed in posterior projection after Xe-133 gas inhalation (wash-in, e quilibrium, and wash-out phases) followed by perfusion scan with Tc-MAA IV in multiple projections. Examination is correlated with recent chest radiograph. FINDINGS: Normal ventilation with appropriate wash-out and no significant air-trapping. No mismatched segmental perfusion defect. IMPRESSION: Very low probability of acute pulmonary embolism.
--- NOTE | 2018-05-21 12:27 | P.PN ---
Subjective Date of Service: 05/21/18 Chief Complaint: Bowel incontinence; full body rash; dyspnea Subjective: No new changes, No C/O voiced, Improving Patient seen and examined at bedside. No family at bedside. Chart reviewed and case discussed with nursing staff. Symptoms seemed to have resolved at this time. Though he does get intermittent episodes like this, in the past 3 weeks he has had 2 episodes. Saturating well on room air, no respiratory distress Review of Systems 10-point ROS is otherwise unremarkable Physical Examination - Vital Signs Temperature: 97.8 F Blood Pressure: 124/69 Pulse: 72 Respirations: 18 Pulse Ox (%): 93 - Physical Exam General: Alert, In no apparent distress, Oriented x3 HEENT: Atraumatic, PERRLA, EOMI Neck: Supple, JVD not distended Respiratory: Clear to auscultation bilaterally, Normal air movement Cardiovascular: Regular rate/rhythm, Normal S1 S2 Gastrointestinal: Normal bowel sounds, No tenderness Musculoskeletal: No tenderness Integumentary: No rashes Neurological: Normal speech, Normal tone, Normal affect Lymphatics: No axilla or inguinal lymphadenopathy - Studies Laboratory Data (last 24 hrs) 05/20/18 23:50: PT 13.2 H, INR 1.12 05/20/18 23:50: WBC 24.4 H*, Hgb 15.7, Hct 44.4, Plt Count 230 05/20/18 23:50: Sodium 142, Potassium 3.9, BUN 14, Creatinine 1.40 H, Glucose 109 H, Magnesium 2.1, Total Bilirubin 0.5, AST 35, ALT 62, Alkaline Phosphatase 77, Lipase 137 Microbiology Data (last 24 hrs): 05/20/18 00:00 Blood - Blood Anaerobic Blood Culture - Final 05/21/18 00:43 Nasopharnyx Influenza Type A Antigen Screen - Final 05/21/18 00:43 Nasopharnyx Influenza Type B Antigen Screen - Final Assessment And Plan - Plan - Problems (Diagnosis) (1) Diarrhea Current Visit: Yes Status: Acute (2) Flushing Current Visit: Yes Status: Acute (3) Shortness of breath Current Visit: Yes Status: Acute (4) Chills (without fever) Current Visit: Yes Status: Acute (5) Leukocytosis Current Visit: Yes Status: Acute - Plan Plan: 1. IV antibiotics 2. Concern for symptoms associated with diarrhea and flushing suggest carcinoid or MEN(type I or II) syndrome. His symptoms have been going on for many years. Can check urine for metanephrines as well as byproducts of serotonin. Since the symptoms are chronic once lab for collected patient to follow with PCP. Patient may be able to go home tomorrow after we have collected 24 hr urine.
--- NOTE | 2018-05-21 12:46 | RAD REPORT ---
EXAM DESCRIPTION: RAD - Chest Single View - 05/20/2018 11:40 pm CLINICAL HISTORY: Dyspnea;Abdominal distention Chest pain. COMPARISON: CHEST SINGLE VIEW dated 01/14/2015 FINDINGS: Portable technique limits examination quality. The lungs are grossly clear. The heart is normal in size. No displaced fractures. IMPRESSION: No acute intrathoracic process suspected.
--- NOTE | 2018-05-21 13:12 | RAD REPORT ---
EXAM DESCRIPTION: CT - Angio Aorta For Dissection - 05/21/2018 3:25 am CLINICAL HISTORY: Chest pain radiating to the back. DYSPNEA COMPARISON: No comparisons TECHNIQUE: CT angiography of the aorta was performed with MIPs. All CT scans are performed using dose optimization technique as appropriate and may include automated exposure control or mA/KV adjustment according to patient size. FINDINGS: A left aortic arch is present with normal branching pattern of the great vessels.No acute aortic finding is seen such as aneurysm, penetrating ulcer or dissection. The celiac axis, SMA, SANDIE and renal arteries are widely patent. No evidence of pulmonary embolism. The lungs are clear. The liver demonstrates no focal mass or biliary dilatation.Mild fatty liver.The spleen, pancreas, adr enal glands and kidneys are within normal limits for arterial phase imaging. No bowel obstruction, free fluid or abscess.No pathologic enlarged lymphadenopathy identified. No fracture or worrisome bone lesion seen. IMPRESSION: No acute aortic finding is demonstrated.
--- NOTE | 2018-05-21 17:27 | EKG ---
Test Date: 2018-05-21 Test Time: 00:22:14 Dinner Cook: MEASUREMENT RESULTS: Intervals: Rate: 82 VA: 146 QRSD: 82 QT: 366 QTc: 427 [place]: P: 35 VA: 146 QRS: 52 T: 67 INTERPRETIVE STATEMENTS: Normal sinus rhythm Normal ECG Compared to ECG 03/19/2018 06:11:18 Sinus arrhythmia no longer present Electronically Signed On 05-21-18 17:18:01 [employer] by Fabio Valle
[2018-05-21] MEDS ORDERED: Levofloxacin500mg IV 500 MG/100 ML BAG IV SCH (21:00)
[2018-05-21 22:22] VITALS: O2SAT 97
[2018-05-22] MEDS: METRONIDAZOLE 500mg IVPB 500 MG/100 ML BAG IV SCH ×2 (00:36→05:53)
[2018-05-22] MEDS: NA CHLORIDE 0.9% 1,000 ML IV SCH (04:40)
[2018-05-22 06:33] LABS: BUN Blood Urea Nitrogen 10 mg/dL (7-18); Bicarbonate 26 mmol/L (21-32); Glucose Level 98 mg/dL (74-106); Magnesium 2.1 mg/dL (1.8-2.4); Phosphorus 3.3 mg/dL (2.5-4.9); Potassium 4.1 mmol/L (3.5-5.1); Sodium Level 142 mmol/L (136-145)
[2018-05-22 06:50] LABS: Absolute Lymphocytes (CBC) 2.6 K/uL (0.7-4.9); Absolute Monocytes 0.6 K/uL (0.1-1.3); Absolute Neutrophil 5.1 K/uL (1.8-8.0); Basophils % 0.4 % (0-1.3); Hematocrit 37.9 % (39.6-49.0); Lymphocytes % 29.6 % (15.3-44.8); MPV 9.4 fL (7.6-11.3); Monocytes % 6.4 % (3.3-12.3); RBC Red Blood Cell Count 4.38 M/uL (4.33-5.43)
[2018-05-22 12:25] VITALS: BP 140/76; TEMP 98.1
--- NOTE | 2018-05-22 14:25 | P.SSS ---
Patient History Date of Service: 05/22/18 Reason for admission: Bowel incontinence; full body rash; dyspnea History of Present Illness: Patient is a 32-year-old gentleman who states that he has been having problems with the symptoms for almost 10 years. He states he was in [place] when these problems started. This was around 2005. He states that he has diarrhea with associated feeling of being flushed with a full red rash throughout along with shortness of breath and shakes and chills. This slowed down over the a few years. However, he had the symptoms recur 3 months ago. He noticed that it is recurring again. He decided to come to the hospital to get it evaluated. Allergies No Known Drug Allergies Allergy (Verified 05/19/17 05:54) Unknown Home Medications: NK [No Home Meds] 05/21/18 - Past Medical/Surgical History Has patient received pneumonia vaccine in the past: No Diabetic: No -: diverticulitis -: wrist surg -: shoulder surg - Social History Smoking Status: Former smoker Alcohol use: No CD- Drugs: No Caffeine use: No Place of Residence: Home Review of Systems 10-point ROS is otherwise unremarkable Physical Examination - Vital Signs Temperature: 98.1 F Blood Pressure: 140/76 Pulse: 59 Respirations: 14 Pulse Ox (%): 97 - Physical Exam General: Alert, In no apparent distress, Oriented x3 HEENT: Atraumatic, PERRLA, Mucous membr. moist/pink, EOMI, Sclerae nonicteric Neck: Supple, 2+ carotid pulse no bruit, No LAD, Without JVD or thyroid abnormality Respiratory: Clear to auscultation bilaterally, Normal air movement Cardiovascular: Regular rate/rhythm, Normal S1 S2 Gastrointestinal: Normal bowel sounds, No tenderness Musculoskeletal: No tenderness Integumentary: No rashes Neurological: Normal gait, Normal speech, Normal strength at 5/5 x4 extr, Normal tone, Normal affect Lymphatics: No axilla or inguinal lymphadenopathy - Studies Microbiology Data (last 24 hrs): 05/20/18 00:00 Blood - Blood Anaerobic Blood Culture - Final Treatment Summary: Overall, patient remained stable throughout the stay. He was admitted for episodes of bowel incontinence, whole body rash shortness of breath. These started about 10 years ago, had almost resolved and now patient has had 2 doses of the past 3 weeks. [place] when he had an episode and brought to the hospital. Since hospitalization, patient has been stable, no symptoms, no bowel incontinence, no rash noted at the time of my evaluation and he has remained hemodynamically stable. His diarrhea has resolved. We considered the possibility of autoimmune disease versus multiple endocrine neoplasia ? Blood work drawn, recommend patient to follow up with primary care physician for results and further evaluation. List of primary care physicians provided to patient. Counseled extensively on making followup appointments so this could be worked up further. - Disposition Condition: GOOD Patient Discharge Instructions: As discussed, we have provided she with a list of primary care physicians. I think it is very important that you follow up with the primary care physician in next 1-2 weeks for further testing/ evaluation of the results. Diet: Regular Activity: Ad whitney Physician Review: Patient Assessed, Agree with Above Assessment and Plan Time Spent Managing Pts Care (In Minutes): 55
[2018-05-26 16:42] LABS: Urine 24HR Volume Metan 1750 mL
== END 2018-05-22 13:34 | disposition home or self-care (01) ==
LOC: ER 22:04 → ERHOLD 05-21 01:01 → 2ND 05-21 03:43
PROVIDERS: ADMIT Hospitalist; ATTEND Hospitalist
DX: R19.7 Diarrhea, unspecified (principal); R21 Rash and other nonspecific skin eruption; R06.02 Shortness of breath; R23.2 Flushing; R68.83 Chills (without fever); D72.829 Elevated white blood cell count, unspecified
CPT/HCPCS: 36415; 71045; 71275; 74175; 78582; 80048; 80076; 81003; 81050; 82088; 82533; 82805; 83497; 83605; 83690; 83735; 83835; 83880; 84100; 84145; 84439; 84443; 84484; 85025; 85610; 87040; 87045; 87046; 87086; 87088; 87177; 87205; 87209; 87493; 87804; 89055; 93005; 96365; 96366; 96372; 99285; A9540; A9558; G0378; J1650; J7030; Q9967